=== PATIENT | female | born 1940 | race Caucasian/White ===

== ENCOUNTER → 2019-03-13 | Outpatient (CLI) | payer OTHER ==
[~2019-03-13] MED LIST: CEPH500 PO; Citalopram HBr40 MG PO; Crutch1 EACH MISC; LEVSOD50 PO; Percocet 5-3251 EACH PO; Prednisone20 MG PO; SULTRIDS PO; Synthroid/Levo0.2 MG PO
== END | disposition home or self-care (01) ==
LOC: PLD 07:52 → LAB SHORT 07:52
DX: C76.1 Malignant neoplasm of thorax (principal)
CPT/HCPCS: 88305; 88341; 88342; 88360

== ENCOUNTER 2019-04-18 06:48 | Day surgery (SDC) | payer OTHER ==
[~2019-04-18] VITALS: Ht 170.2 cm; Wt 104.8 kg
== END 2019-04-18 11:48 | disposition home or self-care (01) ==
LOC: ORSCMMR 06:48 → ORD 07:30 → ORSCMMR 11:48
PROVIDERS: Surgery
PROC: 0JH60WZ Insertion of Totally Implantable Vascular Access Device into Chest Subcutaneous Tissue and Fascia, Open Approach (ICD-10-PCS; principal; 2019-04-18 09:00)
DX: C50.411 Malignant neoplasm of upper-outer quadrant of right female breast (principal); C77.3 Secondary and unspecified malignant neoplasm of axilla and upper limb lymph nodes; F32.9 Major depressive disorder, single episode, unspecified; Z87.891 Personal history of nicotine dependence; Z79.899 Other long term (current) drug therapy
CPT/HCPCS: 77001; A9270-GY; C1788; J0690; J1642; J3010; J7120

== ENCOUNTER → 2019-05-22 | Day surgery (SDC) | payer OTHER | LOC: RAD 11:11 | DX: C50.411 Malignant neoplasm of upper-outer quadrant of right female breast (principal) | CPT/HCPCS: 36598 ==

== ENCOUNTER 2019-10-12 07:46 | Day surgery (SDC) | payer OTHER ==
[~2019-10-12] VITALS: Ht 170.2 cm; Wt 100.8 kg
[~2019-10-12 07:46] MED LIST changes: +ALEN70 PO; +BIOTIN5 MG PO; +CALCIUM PO; +CENTRUM SILVER1 EAC2 PO; +GLUCOSAMINE-CH1 EA36 PO; +[UNRECOGNIZED DRUG - CODE] PO
--- NOTE | 2019-10-12 09:12 | NUR ---
"DAY SURGERY RN | TO OR BOTH DOCTORS AND LEARNING AND DEVELOPMENT COORDINATOR RN HAVE SEEN PT. REPORT TO NORM COOMBS. TO OR."
--- NOTE | 2019-10-12 13:13 | NUR ---
"DAY SURGERY RN | REPORT TO [facility] VSS. STILL ON 1 L NC. DISCHARGE INSTRUCTIONS GIVEN TO PATIENT. EMPTIED 10 ML FROM ED DRAIN. PATIENT EDUCATED ON ED DRAIN MANAGEMENT. RX IN FOLDER. SITE REMAIN C/D/I. DENIES NAUSEA AND PAIN. REPORT OFF TO [facility]BS."
--- NOTE | 2019-10-12 13:24 | NUR ---
PT O2 REMOVED. PT ENCOURAGED TO TAKE SEVERAL DEEP BREATHS. BIOX REMAINS BETWEEN 92-95%. PT DENIES PAIN BUT REPORTS LIVING ABOUT 25 MILES AWAY. PT GIVEN NORCO 1 TABLET PO AND WILL HAVE TO GET RX FILLED ONCE SHE LEAVES HERE. PT HAS TOLERATED PO FOOD AND FLUIDS.
[2019-11-03] MEDS ORDERED: CYCL10 PO (06:07)
== END 2019-10-12 13:45 | disposition home or self-care (01) ==
LOC: ORSCMMR 07:46 → ORD 09:00 → ORSCMMR 09:00
PROVIDERS: Surgery
PROC: 07B50ZX Excision of Right Axillary Lymphatic, Open Approach, Diagnostic (ICD-10-PCS; principal; 2019-10-12 09:00)
PROC: 0HBT0ZZ Excision of Right Breast, Open Approach (ICD-10-PCS; principal; 2019-10-12 09:00)
DX: C50.111 Malignant neoplasm of central portion of right female breast (principal); C77.3 Secondary and unspecified malignant neoplasm of axilla and upper limb lymph nodes; E03.9 Hypothyroidism, unspecified; Z79.899 Other long term (current) drug therapy; E66.9 Obesity, unspecified; Z68.34 Body mass index [BMI] 34.0-34.9, adult
CPT/HCPCS: 88307; A9270-GY; J0690; J1100; J2370; J2405; J2704; J3010; J7120

== ENCOUNTER 2020-07-08 11:49 | Day surgery (SDC) | payer OTHER ==
[~2020-07-08] VITALS: Ht 165.1 cm; Wt 100.6 kg
[~2020-07-08 11:49] MED LIST changes: +CYCL10 PO
== END 2020-07-08 13:25 | disposition home or self-care (01) ==
LOC: ORSCSDS 11:49
PROVIDERS: Surgery
PROC: 0DBK8ZX Excision of Ascending Colon, Via Natural or Artificial Opening Endoscopic, Diagnostic (ICD-10-PCS; principal; 2020-07-08 13:00)
DX: Z12.11 Encounter for screening for malignant neoplasm of colon (principal); Z80.0 Family history of malignant neoplasm of digestive organs; D12.2 Benign neoplasm of ascending colon; F32.9 Major depressive disorder, single episode, unspecified; K57.30 Diverticulosis of large intestine without perforation or abscess without bleeding; K64.8 Other hemorrhoids; E03.9 Hypothyroidism, unspecified; E66.01 Morbid (severe) obesity due to excess calories; Z68.35 Body mass index [BMI] 35.0-35.9, adult; Z87.891 Personal history of nicotine dependence; Z79.899 Other long term (current) drug therapy
CPT/HCPCS: 88305; J2704

== ENCOUNTER 2023-12-26 12:47 | Day surgery (SDC) | payer OTHER ==
[~2023-12-26] VITALS: Ht 170.2 cm; Wt 93.5 kg
[~2023-12-26 12:47] MED LIST changes: +ALEN10 PO; +ANORO ELLIPTA1 EAC1 IH; +FURO20 PO; +Lactated Ringer's 1,000 ML IV ONE; +Sugammadex Sodium 200 MG/2ML SDV (100 MG/ML) ONE
[2023-12-26] MEDS ORDERED: FISH OIL 1,0001 EA10 (13:36)
[2023-12-26] MEDS ORDERED: Lactated Ringer's 1,000 ML IV ONE (14:01)
[2023-12-26] MEDS ORDERED: Ondansetron HCl 2 MG / ML 2ML Vial ONE (14:09)
[2023-12-26] MEDS ORDERED: propofoL 40 ML IV ONE (14:09)
[2023-12-26] MEDS ORDERED: Dexamethasone Sod Phos 10 MG/ML 1ML VIAL ONE (14:10)
[2023-12-26] MEDS ORDERED: Rocuronium Bromide 10 MG/ML 5ML Injection IV ONE (14:10)
[2023-12-26] MEDS ORDERED: Sugammadex Sodium 200 MG/2ML SDV (100 MG/ML) ONE ×2 (14:11→15:48)
[2023-12-26] MEDS ORDERED: FentaNYL Citrate 50 MCG/ML 2 ML Injection ONE (14:12)
[2023-12-26] MEDS ORDERED: Bupivacaine 0.5% HCl 5 MG/ML 30MLVIAL ONE (15:02)
[2023-12-26] MEDS ORDERED: Lidocaine 2%-Epineph 1:100000 20 ML MDV INJ ONE (15:23)
[2023-12-26] MEDS ORDERED: Bupivacaine 0.5% HCl 5 MG/ML 30MLVIAL INJ ONE (15:24)
--- NOTE | 2023-12-26 15:53 | NUR ---
12/26/[address] SPOKE TO [facility].K[facility] PRIOR TO PT'S ARRIVAL IN PACU. HE STATED THAT PT CAN SPEAK, PER [facility].KXW.
[2023-12-26 15:59] VITALS: BP 145/61
[2023-12-26] MEDS ORDERED: OxyCODONE HCL 5 MG TAB ONE (16:24)
--- NOTE | 2023-12-26 16:50 | NUR ---
12/26/23 1650 Jj Rollins PT REPORTED 4/10 TOLERABLE PAIN (FLACC 2/10 ) UPON D/C AND DENIED NASEA.
== END 2023-12-26 16:56 | disposition home or self-care (01) ==
LOC: ORSCSDS 12:47
PROVIDERS: Otolaryngology
PROC: 0CBM8ZX Excision of Pharynx, Via Natural or Artificial Opening Endoscopic, Diagnostic (ICD-10-PCS; principal; 2023-12-26 14:00)
DX: J35.1 Hypertrophy of tonsils (principal); R93.89 Abnormal findings on diagnostic imaging of other specified body structures; E03.9 Hypothyroidism, unspecified; Z79.899 Other long term (current) drug therapy; Z85.3 Personal history of malignant neoplasm of breast; Z87.891 Personal history of nicotine dependence
CPT/HCPCS: 88305; 88341; 88342; 88360; A9270; J1100; J2405; J2704; J3010; J7120

== ENCOUNTER 2024-11-06 08:49 | Emergency (ER) | payer OTHER ==
[~2024-11-06] VITALS: Ht 170.2 cm; Wt 98.4 kg
[~2024-11-06 08:49] MED LIST changes: +FISH OIL 1,0001 EA10; -Lactated Ringer's 1,000 ML IV ONE; -Sugammadex Sodium 200 MG/2ML SDV (100 MG/ML) ONE
[2024-11-06] MEDS ORDERED: NS 1,000 ML IV SCH (09:05)
[2024-11-06] MEDS ORDERED: FentaNYL Citrate 50 MCG/ML 2 ML Injection IV PRN (09:10)
[2024-11-06 09:13] LABS: BASOPHILS ABSOLUTE AUTO 0.06 K/mm3 (0.00-0.23); BASOPHILS PERCENT AUTO 1 % (0-2); EOSINOPHILS ABSOLUTE AUTO 0.47 K/mm3 (0.00-0.68); EOSINOPHILS PERCENT AUTO 8 % (0-6); Hematocrit 39.1 % (33.0-51.0); Hemoglobin 12.7 g/dL (11.5-16.0); IMMATURE GRAN ABSOLUTE AUTO 0.01 K/mm3 (0.00-0.10); IMMATURE GRAN PERCENT AUTO 0 % (0-1); LYMPHOCYTES ABSOLUTE AUTO 0.70 K/mm3 (0.84-5.20); LYMPHOCYTES PERCENT AUTO 11 % (21-46); MONOCYTES ABSOLUTE AUTO 0.47 K/mm3 (0.16-1.47); MONOCYTES PERCENT AUTO 8 % (4-13); Mean Corpuscular HGB Conc 32.5 g/dL (31.5-36.5); Mean Corpuscular Volume 93 fL (80-100); NEUTROPHILS ABSOLUTE AUTO 4.45 K/mm3 (1.96-9.15); NEUTROPHILS PERCENT AUTO 72 % (41-73); NRBC ABSOLUTE 0.00 K/mm3 (0.00-0.02); NRBC Auto 0.0 /100 WBC (0.0-0.2); Platelet Count 225 K/mm3 (150-400); RDW Coefficient Variation 13.1 % (11.7-14.2); RDW Standard Deviation 44.3 fL (35.1-46.3)
[2024-11-06 09:32] LABS: Alanine Aminotransfer (ALT/SGP 17.0 U/L (12-78); Albumin, Blood 3.4 g/dL (3.4-5.0); Albumin/Globulin Ratio 0.9 (0.8-1.8); Anion Gap 8.0 mmol/L (3-11); Aspartate Aminotrans (AST/SGOT 17.0 U/L (12-37); Bilirubin, Total 0.4 mg/dL (0.1-1.0); Blood Urea Nitrogen 19.0 mg/dL (8-24); CO2, Blood 26.0 mmol/L (21-32); Calcium, Blood 8.4 mg/dL (8.5-10.1); Chloride, Blood 109.0 mmol/L (98-108); Creatinine, Blood 1.13 mg/dL (0.40-1.00); Globulin, Blood 3.8 g/dL (2.2-4.0); Glucose, Blood 90.0 mg/dL (70-99); Potassium, Blood 3.9 mmol/L (3.5-5.5); Sodium, Blood 139.0 mmol/L (136-145); Total Protein, Blood 7.2 g/dL (6.4-8.2)
[2024-11-06 10:38] LABS: Source, Urine Clean Catch
[2024-11-06 10:41] LABS: Bilirubin, Urine Neg (Neg); Color, Urine Yellow (P-Yellow); Glucose Qualitative, Urine Neg (Neg); Ketones, Urine Neg (Neg); Leukocyte Esterase, Urine 3+ (Neg); Protein, Urine 1+ (Neg); Specific Gravity, Urine 1.015 (1.003-1.022); Urobilinogen, Urine NORM (Normal)
[2024-11-06 11:10] LABS: White Blood Cells, Urine 25-50 /hpf (0-5)
[2024-11-06 11:12] LABS: Red Blood Cells, Urine 0-2 /hpf (0-2)
[2024-11-06] MEDS ORDERED: CefTRIAXone Sodium 2,000 MG in NS 100 ML IV ONE (12:00)
[2024-11-06] MEDS ORDERED: CEPH500 PO (12:28)
[2024-11-06 13:13] VITALS: BP 173/97
== END 2024-11-06 13:19 | disposition home or self-care (01) ==
LOC: ER 08:49
PROVIDERS: Student in an Organized Health Care Education/Training Program
DX: N39.0 Urinary tract infection, site not specified (principal); Z87.891 Personal history of nicotine dependence; Z88.2 Allergy status to sulfonamides; Z88.1 Allergy status to other antibiotic agents; Z79.890 Hormone replacement therapy; Z79.83 Long term (current) use of bisphosphonates; Z79.899 Other long term (current) drug therapy
CPT/HCPCS: 74177; 76705; 80053; 81001; 83690; 85025; 87077; 87086; 87186; 93005; 93010; 96365-59; 96375; 99285-25; J0696; J3010; J7030; Q9967